=== PATIENT | male | born 1990 | race Two or more races ===

== ENCOUNTER 2016-11-21 16:54 | Emergency (ER) | payer OTHER ==
[~2016-11-21] VITALS: Ht 160 cm; Wt 60.0 kg
[2016-11-21 20:06] VITALS: BP 115/68
== END 2016-11-21 20:06 | disposition home or self-care (01) ==
LOC: EMS 16:57
DX: S40.811A Abrasion of right upper arm, initial encounter (principal); F17.210 Nicotine dependence, cigarettes, uncomplicated; W17.89XA Other fall from one level to another, initial encounter; Y93.89 Activity, other specified; Y92.89 Other specified places as the place of occurrence of the external cause; Y99.8 Other external cause status
CPT/HCPCS: 99282